=== PATIENT | female | born 1955 | race Caucasian/White ===

== ENCOUNTER → 2020-02-22 17:56 | Outpatient (CLI) | payer BC, SELFPAY ==
--- NOTE | ~2020-02-22 | DEXA_ITS ---
Bone Density Report Name: Laura Mercedes Age: 64 Sex: Female Ethnicity: White Date of : 1955 Indication: postmenopausal; screening for osteoporosis; height loss; hysterectomy; rheumatoid arthritis; Referring Provider: GENE SINGH Study: Bone densitometry was performed. Exam Date: February 22, 2020 Accession number: [id number] Bone Density: Region BMD T-score Z-score Classification AP Spine (L1-L4) 1.153 1.0 2.6 Normal Femoral Neck (Left) 0.668 -1.6 -0.2 Osteopenia Total Hip (Left) 0.864 -0.6 0.5 Normal Femoral Neck (Right) 0.666 -1.6 -0.2 Osteopenia Total Hip (Right) 0.936 0.0 1.1 Normal Total Hip Mean 0.900 -0.3 0.8 Normal World Health Organization criteria for BMD impression classify patients as: Normal (T-score at or above -1.0), Osteopenia (T-score between -1.0 and -2.5), or Osteoporosis (T-score at or below -2.5). 10-year Fracture Risk(1): Major Osteoporotic Fracture 10% Hip Fracture 1.1% Reported Risk Factors: [place] (), Neck BMD=0.666, BMI=41.6, rheumatoid arthritis (1) FRAX(R) Version 3.08. Fracture probability calculated for an untreated patient. Fracture probability may be lower if the patient has received treatment. Clinical Information Provided by Patient: Has rheumatoid arthritis Has used the following medications: Vitamin D, MTV Has the following medical conditions: Hysterectomy Patient maximum height was 65.0 Menopause Age: 35 No regular weight bearing exercise Does not regularly consume dairy products Drinks caffeinated beverages Onset of menses at age 9 Number of children 2 Impression: The patient has low bone mass, based on the Left Femoral Neck T-score. The patient has an estimated ten-year risk of hip fracture of 1.1% and an estimated ten-year risk of major fracture of 10%, based on the WHO FRAX algorithm. Discussion: BONE DENSITY IS LOW AT ONE OR MORE SKELETAL SITES. This patient's lowest T-score is low at one or more skeletal sites. It meets the World Health Organization's (WHO) criteria for ?low bone mass? (T-score between -1.0 and -2.5). The patient's 10-year risk of fracture as calculated by FRAX is less than the threshold where pharmacological therapy is recommended by the National Osteoporosis Foundation (NOF). However, all treatment decisions require clinical judgment and consideration of individual patient factors, including patient preferences, comorbidities, previous drug use, risk factors not captured in the FRAX model (e.g., frailty, falls, vitamin D deficiency, increased bone turnover, interval significant decline in bone density) and possible under or overestimation of fracture risk by FRAX. The patient should follow a healthful lifestyle (good nutrition with adequate calcium and vitamin D, and appropriate weight-bearing exercise
== END ==
PROVIDERS: Visit Provider Obstetrics & Gynecology
DX: Z78.0 Asymptomatic menopausal state (principal); M85.852 Other specified disorders of bone density and structure, left thigh; M85.851 Other specified disorders of bone density and structure, right thigh
CPT/HCPCS: 77080

== ENCOUNTER 2023-01-11 10:47 | Outpatient (RCR) | payer MEDICARE, OTHER, SELFPAY ==
--- NOTE | 2023-01-11 13:13 | OPREHPOC ---
Outpatient Therapy Plan of Care This is a Multidisciplinary Plan of Care that may contain components documented by all disciplines (PT, OT, and ST.) PT Problem 1 PT Problem #1 Knowledge Deficit PT Goal 1 Goal Patient to demonstrate independence with HEP Target Visit 12 PT Problem 2 PT Problem #2 Pain PT Goal 1 Goal 1. patient to report highest pain at 2/10 2. patient to report ability to sleep with no disturbance due to R hip pain Target Visit 12 PT Problem 3 PT Problem #3 Impaired Flexibility PT Goal 1 Goal Patient to demonstrate mild restriction of the R piriformis to decrease pain with prolonged postiions to complete house hld tasks. Target Visit 12 PT Problem 4 PT Problem #4 Impaired Strength PT Goal 1 Goal Patient to demonstrate 4+/5 B hip strength to return to prolonged ambulation at PLOF. Target Visit 12 PT Problem 5 PT Problem #5 Impaired Functional Mobil PT Goal 1 Goal 1. Patient to report ability to get into and out of her car with no R hip pain 2. Patient to complete 6 min walk test with no AD 3. Patient to report ability to get into and out of bed with no R hip pain Target Visit 12
--- NOTE | 2023-01-11 13:14 | PTOPEVAL1 ---
Assessment and note entered by Palma Pablo DPT Evaluation Information Assessment Status Evaluation Diagnosis R hip pain Onset 12/30/22 Subjective Information Patient reports she fell on 10/22/22 on her R side. She reports she got x-rays right away that were negative. She reports she also sprained her L ankle and had to wear a walking boot and that made her R hip pain worse. She reports pain is in groin and will sometimes radiate down the R LE. She is now walking with a cane and was not doing so before. She reports she has noticed some improvement in pain recently with rest and pain medication. She reports most difficulty with bathing, dressing, getting into and out of the car , getting into and out of bed and walking prolonged distances. She reports prior she has low back pain that will sometimes lead to B hip pain. RTMD in March. Reported Pain Level Pain Score 8: Self Report Assessment PT Clinical Summary Patient is a 67 year old female who presents to PT with R hip pain s/p fall. Patient demonstrates decreased R hip strength, impaired gait mechanincs and decreased flexibility of the R hip impairing her ability to ambulate, get into and out of bed, get into and out of a vehicle and to complete house hold tasks. She would benefit from skilled PT to address impairments and return to PLOF. Plan of Care Interventions Electrical Stimulation,Gait Training,Hot Pack/Cold Pack,Manual Therapy,Neuro Re-education,Patient/ Caregiver Educati,Therapeutic Activities, Therapeutic Exercise PT Services Indicated Yes Treatment Frequency and 3x weekly for 12 visits Duration These treatments will address the objective and functional deficits as defined above. The patient will be advanced safely and appropriately in order for the patient to progress towards his/her prior level of function. Additional exercises will be introduced and as well as a comprehensive home exercise program upon discharge, if needed, ?to ensure carryover of functional gains achieved in the clinic. This treatment plan has been reviewed and agreement upon by the patient.
--- NOTE | 2023-02-11 11:05 | OPREHPOC ---
Outpatient Therapy Plan of Care This is a Multidisciplinary Plan of Care that may contain components documented by all disciplines (PT, OT, and ST.) PT Problem 1 PT Problem #1 Knowledge Deficit PT Goal 1 Goal Patient to demonstrate independence with HEP Target Visit 12 Comment continue PT Problem 2 PT Problem #2 Pain PT Goal 1 Goal 1. patient to report highest pain at 2/10 2. patient to report ability to sleep with no disturbance due to R hip pain Target Visit 12 Comment continue PT Problem 3 PT Problem #3 Impaired Flexibility PT Goal 1 Goal Patient to demonstrate mild restriction of the R piriformis to decrease pain with prolonged postiions to complete house hld tasks. Target Visit 12 Comment continue PT Problem 4 PT Problem #4 Impaired Strength PT Goal 1 Goal Patient to demonstrate 4+/5 B hip strength to return to prolonged ambulation at PLOF. Target Visit 12 Comment continue PT Problem 5 PT Problem #5 Impaired Functional Mobil PT Goal 1 Goal 1. Patient to report ability to get into and out of her car with no R hip pain 2. Patient to complete 6 min walk test with no AD 3. Patient to report ability to get into and out of bed with no R hip pain Target Visit 12 Comment continue
--- NOTE | 2023-02-11 11:06 | PTOPPROGNS ---
Assessment and note entered by Palma Pablo DPT Evaluation Information Assessment Status Progress - Pt Not Present Diagnosis R hip pain Onset 12/30/22 Subjective Information Progress note complete from 10th visit on 02/08/23. Patient reports her pain has moved to glute/lumbar region on right side and down leg. She reports traction has seemed to help at this time. She reports she is better some days than others. Assessment PT Clinical Summary Ms. Lundberg has been seen for 10 visits of skilled PT with progression towards goals. She has demonstrated improved R hip strength and has some days with decreased pain. She has responded well to mechanical traction at this time and will benefit from continued use. She is independent with HEP. She will benefit from continued skilled PT to address remaining impairments and return to PLOF. Plan of Care Interventions Electrical Stimulation,Gait Training,Hot Pack/Cold Pack,Manual Therapy,Neuro Re-education,Patient/ Caregiver Educati,Therapeutic Activities, Therapeutic Exercise PT Services Indicated Yes Treatment Frequency and continue with remaining 2 visits Duration These treatments will address the objective and functional deficits as defined above. The patient will be advanced safely and appropriately in order for the patient to progress towards his/her prior level of function. Additional exercises will be introduced and as well as a comprehensive home exercise program upon discharge, if needed, ?to ensure carryover of functional gains achieved in the clinic. This treatment plan has been reviewed and agreement upon by the patient.
--- NOTE | 2023-02-15 11:05 | OPREHPOC ---
Outpatient Therapy Plan of Care This is a Multidisciplinary Plan of Care that may contain components documented by all disciplines (PT, OT, and ST.) PT Problem 1 PT Problem #1 Knowledge Deficit PT Goal 1 Goal Patient to demonstrate independence with HEP Target Visit 12 Progress Met Comment continue PT Problem 2 PT Problem #2 Pain PT Goal 1 Goal 1. patient to report highest pain at 2/10 2. patient to report ability to sleep with no disturbance due to R hip pain Target Visit 20 Comment continue PT Problem 3 PT Problem #3 Impaired Flexibility PT Goal 1 Goal Patient to demonstrate mild restriction of the R piriformis to decrease pain with prolonged postiions to complete house hld tasks. Target Visit 12 Progress Met Comment continue PT Problem 4 PT Problem #4 Impaired Strength PT Goal 1 Goal Patient to demonstrate 4+/5 B hip strength to return to prolonged ambulation at PLOF. Target Visit 20 Comment progressing PT Problem 5 PT Problem #5 Impaired Functional Mobil PT Goal 1 Goal 1. Patient to report ability to get into and out of her car with no R hip pain 2. Patient to complete 6 min walk test with no AD 3. Patient to report ability to get into and out of bed with no R hip pain Target Visit 20 Progress Partially Met Comment 1 and 3 met
--- NOTE | 2023-02-15 11:05 | PTOPREEVAL ---
Assessment and note entered by Palma Pablo DPT Evaluation Information Assessment Status Re-evaluation Diagnosis R hip pain Onset 12/30/22 Subjective Information Patient reports pain down the R LE has went away. She reports pain is now located at the low back. She reports she has been able to dress, get into the car and into bed with no difficulty. She reports she has remaining difficulty with bending to perform house hold tasks and to dry off after the shower. Reported Pain Level Pain Score 0,3: Self Report Assessment PT Clinical Summary Mrs. Mercedes has been seen for 12 visits of skilled PT with great progressed towards goals. Patient has been able to get into and out of car and shower with no difficulty. She has decreased radiating pain but continues to have low back pain . She continues to lack hip abduction strength and has difficulty with lumbar flexion to complete house hold and bathing tasks. She will benefit from continued PT to address remaining impairments and return to OF. Plan of Care Interventions Electrical Stimulation,Gait Training,Hot Pack/Cold Pack,Manual Therapy,Neuro Re-education,Patient/ Caregiver Educati,Therapeutic Activities, Therapeutic Exercise PT Services Indicated Yes Treatment Frequency and continue 2x weekly for 8 visits Duration These treatments will address the objective and functional deficits as defined above. The patient will be advanced safely and appropriately in order for the patient to progress towards his/her prior level of function. Additional exercises will be introduced and as well as a comprehensive home exercise program upon discharge, if needed, ?to ensure carryover of functional gains achieved in the clinic. This treatment plan has been reviewed and agreement upon by the patient.
--- NOTE | 2023-03-05 13:31 | OPREHPOC ---
Outpatient Therapy Plan of Care This is a Multidisciplinary Plan of Care that may contain components documented by all disciplines (PT, OT, and ST.) PT Problem 1 PT Problem #1 Knowledge Deficit PT Goal 1 Goal Patient to demonstrate independence with HEP Target Visit 12 Progress Met Comment . PT Problem 2 PT Problem #2 Pain PT Goal 1 Goal 1. patient to report highest pain at 2/10 2. patient to report ability to sleep with no disturbance due to R hip pain Target Visit 20 Progress Met Comment . PT Problem 3 PT Problem #3 Impaired Flexibility PT Goal 1 Goal Patient to demonstrate mild restriction of the R piriformis to decrease pain with prolonged postiions to complete house hld tasks. Target Visit 12 Progress Met Comment . PT Problem 4 PT Problem #4 Impaired Strength PT Goal 1 Goal Patient to demonstrate 4+/5 B hip strength to return to prolonged ambulation at PLOF. Target Visit 20 Progress Met Comment . PT Problem 5 PT Problem #5 Impaired Functional Mobil PT Goal 1 Goal 1. Patient to report ability to get into and out of her car with no R hip pain 2. Patient to complete 6 min walk test with no AD 3. Patient to report ability to get into and out of bed with no R hip pain Target Visit 20 Progress Met Comment .
--- NOTE | 2023-03-05 13:31 | PTOPDC ---
Assessment and note entered by Palma Pablo DPT Evaluation Information Assessment Status Discharge Diagnosis R hip pain Onset 12/30/22 Subjective Information Patient reports she has been able to return to all prior activies without limitations. She reports she has not had pain for the last 2 weeks. She reports she is independent with HEP. Reported Pain Level Pain Score 0,0: Self Report Pain Score 3,0: Self Report Assessment PT Clinical Summary Mrs. Mercedes attended 18 visits of skilled PT with all goals met. She has not had low back or radiating pain in the last 2 weeks. She has been able to return to all activities at [facility]. She also reports no sleep disturbance due to pain. She is independent with HEP and is appropriate for DC at this time. Plan of Care PT Services Indicated No
== END 2023-03-05 14:12 | disposition home or self-care (01) ==
LOC: CHSPT 10:47
PROVIDERS: Visit Provider Nurse Practitioner Family
DX: M25.551 Pain in right hip (principal)
CPT/HCPCS: 97012; 97014; 97110; 97140; 97161; G0283

== ENCOUNTER 2023-07-28 09:42 | Outpatient (RCR) | payer MEDICARE, OTHER, SELFPAY ==
--- NOTE | 2023-07-28 11:07 | OPREHPOC ---
Outpatient Therapy Plan of Care This is a Multidisciplinary Plan of Care that may contain components documented by all disciplines (PT, OT, and ST.) PT Problem 1 PT Problem #1 Knowledge Deficit PT Goal 1 Goal 1. independent and compliant with HEP Target Visit 4 PT Problem 2 PT Problem #2 Pain PT Goal 1 Goal 1. keep pain at worst in the bilateral knees at 5/ 10 or less Target Visit 9 PT Problem 3 PT Problem #3 Impaired Strength PT Goal 1 Goal 1. improve bilateral hip strength to 4+/5 or better overall 2. improve L knee strength to 5/5 Target Visit 9 PT Problem 4 PT Problem #4 Impaired Functional Mobil PT Goal 1 Goal 1. LEFS to display 30% or less functional deficits 2. patient to stand and ambulate for 2 hours to allow her to go to the zoo and participate in other family activities 3. patient to perform squat with safe mechanics Target Visit 9
--- NOTE | 2023-07-28 11:08 | PTOPEVAL1 ---
Assessment and note entered by JT File, PT Evaluation Information Assessment Status Evaluation Diagnosis L knee pain Onset 07/19/23 Subjective Information patient reports she is having burning pain in the middle of her knees. she reports the L is worse than the R. she reports the L knee will give out on her and she will nearly fall. she reports this has been going on for 4-5 months. she reports she is not interested in surgery, and thus has not seen an ortho surgeon. she reports she has increased symptoms with stair ambulation, walking, and exercise/activity. she reports she did have xrays performed in [place]. she reports she was told she has arthritis. she reports she did not have any injections, or new meds. she reports her goal would be to walk enough to go to the zoo without having to spend the next few days recovering. she reports she also has a bad back. she she does not have any burning above or below the knees. she reports the symptoms on the L have been going on for 4-5 months, and the R knee is just now starting. Reported Pain Level Pain Score 5,0: Self Report Assessment PT Clinical Summary mrs. larios is a 68 yo woman who presents to skilled PT services for evaluation and treatment of bilateral (L more than R) knee pain. she presents today with signs and symptoms of bilateral knee OA and pes anserine bursitis. she displays deficits in hip and knee strength, activity endurance, and pain preventing functional activity performance. she would benefit from continued skilled PT to address her objective/ functional deficits and progress towards a return to her prior level functional activity performance /quality of life. Plan of Care Interventions Gait Training,Hot Pack/Cold Pack,Manual Therapy, Neuro Re-education,Patient/Caregiver Educati, Therapeutic Activities,Therapeutic Exercise PT Services Indicated Yes Treatment Frequency and 3x weekly for 9 visits Duration These treatments will address the objective and functional deficits as defined above. The patient will be advanced safely and appropriately in order for the patient to progress towards his/her prior level of function. Additional exercises will be introduced and as well as a comprehensive home exercise program upon discharge, if needed, ?to ensure carryover of functional gains achieved in the clinic. This treatment plan has been reviewed and agreement upon by the patient.
--- NOTE | 2023-08-09 08:43 | PCPTNOTE ---
Cancelled session due to illness.
--- NOTE | 2023-08-24 09:58 | OPREHPOC ---
Outpatient Therapy Plan of Care This is a Multidisciplinary Plan of Care that may contain components documented by all disciplines (PT, OT, and ST.) PT Problem 1 PT Problem #1 Knowledge Deficit PT Goal 1 Goal 1. independent and compliant with HEP Target Visit 4 Progress Met PT Problem 2 PT Problem #2 Pain PT Goal 1 Goal 1. keep pain at worst in the bilateral knees at 5/ 10 or less Target Visit 9 Progress Met PT Problem 3 PT Problem #3 Impaired Strength PT Goal 1 Goal 1. improve bilateral hip strength to 4+/5 or better overall. met 2. improve L knee strength to 5/5. met Target Visit 9 Progress Met PT Problem 4 PT Problem #4 Impaired Functional Mobil PT Goal 1 Goal 1. LEFS to display 30% or less functional deficits . not met 2. patient to stand and ambulate for 2 hours to allow her to go to the zoo and participate in other family activities. not met 3. patient to perform squat with safe mechanics. met Target Visit 9 Progress Partially Met
--- NOTE | 2023-08-24 09:58 | PTOPDC ---
Assessment and note entered by JT File, PT Evaluation Information Assessment Status Discharge Diagnosis L knee pain Onset 07/19/23 Subjective Information patient reports she feels good today. she reports she does see the Ortho this coming wednesday. she reports she believes she is ready to be done with therapy at this time. she reports all of her daily activities are now easier. Reported Pain Level Pain Score 2,0: Self Report Assessment PT Clinical Summary mrs. larios presents to skilled PT for her 9th skilled therapy visit today. she reports having little to no pain in the bilateral knees, and improved performance of daily activities. she displays a significant improvement in LEFS score, LE strength, and functional squat mechanics. she has met all goals for skilled PT, except for LEFS score and standing/ambulation for two hours. she is independent and compliant with her HEP. she will DC skilled PT this date, and continue with HEP at home. Plan of Care PT Services Indicated Yes
== END 2023-08-24 11:23 | disposition home or self-care (01) ==
LOC: CHSPT 09:42
PROVIDERS: Visit Provider Nurse Practitioner Family
DX: M25.562 Pain in left knee (principal)
CPT/HCPCS: 97110; 97112; 97150; 97161